=== PATIENT | female | born 1985 | race Caucasian/White ===

== ENCOUNTER 2019-07-31 05:25 | Day surgery (SDC) | payer OTHER ==
[2019-07-29 10:53] LABS: HEMATOCRIT 43.6 % (36.0-48.0); HEMOGLOBIN 14.1 g/dL (12-16); MCH 30.6 pg (26.0-34.0); MCHC 32.3 g/dL (31.0-37.0); MCV 94.6 fL (80.0-100.0); MEAN PLATELET VOLUME 11.5 fL (7.4-10.4); RBC 4.61 10x6/uL (4.00-5.40); RDW 13.9 % (11.5-14.5); WBC 8.3 10x3/uL (4.8-10.8)
[~2019-07-31] VITALS: Ht 175.3 cm; Wt 82.6 kg
[~2019-07-31 05:25] MED LIST: ADDERALL 30 MG30 MG PO; BENTYL10 MG PO; CYCLOBENZAPRINE10 MG PO; HYDROCODON-ACE1 EAC2 PO; HYDROCODONE-APA1 TAB PO; IBUPROFEN600 MG PO; LYRICA150 MG PO; OMEPRAZOLE40 MG PO; PROAIR HFA8.5 G1 INH; PROZAC10 MG PO; PROZAC20 MG PO; XANAX1 MG PO
[2019-07-31 06:05] VITALS: BP 103/61; Ht 175.3 cm; Wt 82.6 kg
[2019-07-31 06:05] LABS: HCG URINE NEGATIVE (NEGATIVE)
--- NOTE | 2019-07-31 06:49 | NUR ---
PATIENT IN OUTPATIENT. SHE IS NOT SUICIDIAL. SHE HAD THOUGTS FIVE YEARS AGO OF WANTING TO GO TO SLEEP AND NOT WAKING UP BECAUSE HER COMMITED SUICIDE IN FRONT OF HER. SHE IDENTIFIES REASONS FOR LIVING. [phone] NUMBER GIVEN TO HER FOR FUTURE REFERENCE
[2019-07-31] MEDS ORDERED: HYDROCODON-ACE1 EA10 PO (09:23)
--- NOTE | 2019-07-31 09:53 | NUR ---
0950 OPA DISCONTINUED. PATINET AROUSABLE, MAINTAINING PATENT AIRWAY
--- NOTE | 2019-08-05 14:56 | OP ---
PATIENT NAME: LATANYA ZUNIGA MEDICAL RECORD: [id number] :83 LOCATION:D.OPS ADMISSION DATE: SURGEON: MARIA EUGENIA LOREDO MD DATE OF OPERATION: 07/31/2019 PREOPERATIVE DIAGNOSIS: Medial meniscus tear of the left knee. POSTOPERATIVE DIAGNOSIS: Medial meniscus tear of the left knee. PROCEDURE: Arthroscopic partial medial meniscectomy of the left knee. SURGEON: Maria Eugenia Loredo MD ANESTHESIA: General. INTRAOPERATIVE COMPLICATIONS: None. SUMMARY OF PATHOLOGIC FINDINGS: The patient had a complex tear on the posterior horn of the medial meniscus consistent with the preoperative diagnosis and imaging. OPERATIVE SUMMARY IN DETAIL: After obtaining the appropriate preoperative orthopedic surgery consent as well as anesthetic consultation, evaluation and clearance, the patient was brought to the operating room and placed on the operating table in supine position. After adequate general laryngeal mask airway was administered, tourniquet was placed about the proximal aspect of the left lower extremity. Left lower extremity was then prepped and draped in routine sterile fashion. The leg was elevated and exsanguinated, tourniquet was inflated to 350 mmHg. Routine inferolateral portal was established followed by superomedial portal and inferomedial portal. Diagnostic arthroscopy showed the patient has a complex tear of the posterior horn of the medial meniscus. Combination of meniscotome as well as full radius resector was utilized to debride the meniscus back to stable meniscal elements. Having completed this, the knee was insufflated with 30 cc of 0.25% Marcaine with epinephrine and 40 mg of Depo-Medrol. Arthroscopy portals were closed in routine interrupted fashion using 4-0 Prolene. Sterile dressings were applied. Tourniquet was deflated. The patient was awakened and taken to the recovery room in stable condition. All final needle and sponge counts were correct. 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
== END 2019-07-31 11:10 | disposition home or self-care (01) ==
LOC: D.OPS 05:25 → D.PAN 09:00 → D.OPS 11:10
PROVIDERS: Anesthesiology; ATTEND Orthopaedic Surgery
DX: S83.232A Complex tear of medial meniscus, current injury, left knee, initial encounter (principal); K21.9 Gastro-esophageal reflux disease without esophagitis; J45.909 Unspecified asthma, uncomplicated; F17.200 Nicotine dependence, unspecified, uncomplicated; X58.XXXA Exposure to other specified factors, initial encounter